=== PATIENT | male | born 1970 | race Hispanic/Latino ===

== ENCOUNTER → 2017-11-30 | Outpatient (CLI) | payer MEDICAID | END | disposition home or self-care (01) | LOC: RAH 13:18 | PROVIDERS: ATTEND Internal Medicine | DX: R59.0 Localized enlarged lymph nodes (principal) | CPT/HCPCS: 76536 ==

== ENCOUNTER → 2018-06-06 | Outpatient (CLI) | payer MEDICAID | END | disposition home or self-care (01) | LOC: OIH 10:09 | PROVIDERS: ATTEND Internal Medicine | DX: M13.812 Other specified arthritis, left shoulder (principal) | CPT/HCPCS: 73030 ==

== ENCOUNTER → 2019-12-04 | Outpatient (CLI) | payer MEDICAID | END | disposition home or self-care (01) | LOC: RAH 10:37 | PROVIDERS: ATTEND Internal Medicine | DX: E03.9 Hypothyroidism, unspecified (principal) ==

== ENCOUNTER → 2020-05-01 | Outpatient (CLI) | payer MEDICAID | END | disposition home or self-care (01) | LOC: RAH 10:40 | PROVIDERS: ATTEND Internal Medicine | DX: M47.27 Other spondylosis with radiculopathy, lumbosacral region (principal); M41.9 Scoliosis, unspecified | CPT/HCPCS: 72082; 72100 ==

== ENCOUNTER 2021-10-27 21:48 | Emergency (ER) | payer MEDICAID ==
[~2021-10-27] VITALS: Ht 175.3 cm; Wt 112.0 kg
[2021-10-27 23:40] LABS: APPEARANCE,URINE Clear (CLEAR); BILIRUBIN,URINE Negative (NEGATIVE); COLOR,URINE Dark Yellow (YELLOW); GLUCOSE, URINE (UA) Negative (NEGATIVE); KETONES,URINE 40 mg/dL (NEGATIVE); LEUKOCYTE ESTERASE ,URINE Moderate (NEGATIVE); NITRATE,URINE Negative (NEGATIVE); OCCULT BLOOD,URINE Negative (NEGATIVE); PROTEIN,URINE Trace mg/dL (NEGATIVE)
[2021-10-27] MEDS ORDERED: FAMOTIDINE 20MG VIAL IV ONE (23:41)
[2021-10-27] MEDS ORDERED: ONDANSETRON 4MG INJ ONE (23:41)
[2021-10-27 23:52] LABS: BACTERIA,URINE Few /HPF (None Seen); MUCUS,URINE Many LPF (None Seen); RBC,URINE None Seen /HPF (0-1); SQUAMOUS EPITHELIAL CELL,UR Few /HPF (0-2)
[2021-10-27 23:52] LABS: BASOPHILS % (AUTO) 0.1 % (0.0-5.0); EOSINOPHILS % (AUTO) 0.7 % (0.0-8.0); HEMATOCRIT 48.9 % (42-54); LYMPHOCYTES % (AUTO) 4.1 % (21.0-51.0); MEAN CORPUSCULAR HEMOGLOBIN 30.1 pg (27.0-33.0); MEAN CORPUSCULAR HGB CONC 32.7 g/dL (32.0-36.0); MEAN CORPUSCULAR VOLUME 92.1 fL (79-99); MONOCYTES % (AUTO) 5.4 % (3.0-13.0); NEUTROPHILS % (AUTO) 89.4 % (40.0-77.0); PLATELET COUNT (AUTO) 271 K/uL (130-400); RED BLOOD CELL COUNT(AUTO) 5.31 MIL/uL (4.50-6.20); RED CELL DISTRIBUTION WIDTH 12.7 % (11.0-15.5); WHITE BLOOD COUNT (AUTO) 15.2 K/uL (4.8-10.8)
[2021-10-28] MEDS ORDERED: CEFTRIAXONE 1G VIAL IVP ONE
[2021-10-28] MEDS ORDERED: FAMOTIDINE 20MG VIAL IV ONE
[2021-10-28] MEDS ORDERED: CEPH500B PO
[2021-10-28] MEDS ORDERED: ONDANSETRON 4MG INJ IVP ONE
[2021-10-28] MEDS ORDERED: 0.9%NACL 1000ML 1,000 ML IV ONE
[2021-10-28] MEDS ORDERED: ONDA4TAB10 PO
[2021-10-28] MEDS ORDERED: FAMO-136 PO
[2021-10-28 00:02] LABS: CREATININE 0.9 mg/dL (0.5-1.5)
[2021-10-28 00:07] LABS: ALBUMIN 4.6 g/dL (3.5-5.0); BILIRUBIN,TOTAL 0.9 mg/dL (0.2-1.0); TOTAL PROTEIN, SERUM 9.6 g/dL (6.0-8.3)
[2021-10-28 01:13] VITALS: BP 125/70
== END 2021-10-28 01:20 | disposition home or self-care (01) ==
LOC: EDH 21:48
DX: N39.0 Urinary tract infection, site not specified (principal); R11.2 Nausea with vomiting, unspecified; F20.9 Schizophrenia, unspecified; E03.9 Hypothyroidism, unspecified; Z79.899 Other long term (current) drug therapy
CPT/HCPCS: 36415; 80053; 81001; 83690; 84484; 85025; 87088; 93005; 96361; 96374; 96375 ×2; 99284; J0696; J2405; J7030; S0028; J3490

== ENCOUNTER 2025-03-03 11:14 | Emergency (ER) | payer MEDICAID ==
[~2025-03-03] VITALS: Ht 175.3 cm; Wt 103.4 kg
[~2025-03-03 11:14] MED LIST: CEPH500B PO; FAMO-136 PO; ONDA-243 PO
--- NOTE | 2025-03-03 11:21 | ERN ---
ED Note History of Present Illness Stated Complaint: BACK PAIN Chief Complaint: Back Pain or Injury Time Seen by MD: 11:16 Dictation: PATIENT IS A 54-YEAR-OLD MALE HERE WITH HIS WITH COMPLAINTS OF AN ACUTE ONSET OF LUMBOSACRAL PAIN TENDERNESS WITHOUT RADICULOPATHY OR SCIATICA ONSET YESTERDAY. SAID HE WOKE UP WITH THE PAIN THAT GOT PROGRESSIVELY WORSE. DENIES ANY CHANGE IN BOWEL OR BLADDER FUNCTION NO CHANGE IN URINATION NO FEVER NO CHILLS. DOES STATE HE HAS A HISTORY OF SCOLIOSIS. HE TOOK TYLENOL YESTERDAY FOR PAIN. 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 13 POINT REVIEW OF SYSTEMS ASSESSED AND ALL NEGATIVE EXCEPT FOR ABOVE. Initial Vital Sign VS Vital Signs Date Time Temp Pulse Resp B/P (MAP) Pulse Ox O2 Delivery O2 Flow Rate FiO2 03/03/25 11:15 98.1 76 16 118/69 97 Room Air 03/03/25 11:46 0 21 Physical Exam Dictation VITAL SIGNS REVIEWED GENERAL APPEARANCE: ALERT, ORIENTED X 3, MODERATE ACUTE DISTRESS, WELL DEVELOPED, NOURISHED. HEAD AND FACE: NON-TRAUMATIC. EYES: PERRL, PINK CONJUNCTIVAS, EYELID NO TRAUMA, ANTERIOR CHAMBER WITH ARCUS SENILIS. EARS: PINNAS INTACT AND NO SIGNS OF TRAUMA OR ERYTHEMA EAR CANALS CLEAR AND NO DISCHARGE TM NO ERYTHEMA NOSE: NO DISCHARGE, NO BLEEDING. OROPHARYNX: MOUTH NORMAL, TONGUE PINK, PHARYNX CLEAR,NO ERYTHEMA, TONSILS NO EXUDATES, NO ABSCESSES NOTED, MUCOUS MEMBRANE MOIST NECK: SUPPLE, NON-TENDER, NO THYROMEGALY, NO MASSES, NO JVD, NO BRUITS BREAST:DEFERRED CHEST:NO TENDERNESS, NO CREPITUS, NO PARADOXICAL MOVEMENT, NO RETRACTIONS LUNGS:CLEAR, WELL-VENTILATED, SYMMETRIC, NO RALES, NO WHEEZING, NO RHONCHI, NO STRIDOR, GOOD BREATH SOUNDS BILATERALLY HEART: REGULAR RATE, REGULAR RHYTHM, NO MURMUR, NO GALLOPS VASCULAR: NO PERIPHERAL EDEMA, ABDOMEN: SOFT, POSITIVE BOWEL SOUNDS, NONDISTENDED, NO GUARDING, NONTENDER, NO REBOUND, NO MASSES NO HEPATOMEGALY, NO SPLENOMEGALY, NO MOISE'S SIGN, NO HERNIAS. RECTAL: DEFERRED GENITAL: DEFERRED NEUROLOGICAL: NORMAL SPEECH, MOTOR FUNCTION INTACT, SENSORY FUNCTION INTACT MUSCULOSKELETAL: NECK NONTENDER, FULL RANGE OF MOTION, DIFFUSE LUMBOSACRAL TENDERNESS WITHOUT MIDLINE SPINE PAIN. NEGATIVE STRAIGHT LEG RAISE BILATERALLY 10. NO STEP-OFFS EXTREMITIES: NONTENDER, FULL RANGE OF MOTION SKIN: COLOR PINK, DRY, NO TURGOR, NO RASH, NO LACERATIONS, NO ABRASIONS, NO CONTUSIONS. LYMPHATIC: DEFERRED Results (Laboratory/Radiology) Laboratory/Radiology LUMBOSACRAL X-RAY DEMONSTRATES SCOLIOTIC LEAN WITH DEGENERATIVE JOINT DISEASE. Labs Reviewed?: Yes ED Course ED Course Orders Procedure Category Date Status Time Dexamethasone 4mg/Ml PHA 03/03/25 Complete 1ml Vial (Dexametha 11:30 Ibuprofen 800 Mg Tab PHA 03/03/25 Complete (Motrin) 11:30 Cyclobenzaprine Hcl PHA 03/03/25 Complete (Cyclobenzaprine Hcl 11:30 Lumbar Spine 2-3vws RAD 03/03/25 Taken 11:18 Current Medications Medications (Trade) Dose Ordered Sig/Saige Route PRN Reason Start Time Stop Time Status Last Admin Dose Admin Cyclobenzaprine HCl (Cyclobenzaprine HCl) 10 mg ONCE ONCE PO 03/03/25 11:30 03/03/25 11:31 DC 03/03/25 11:38 Dexamethasone Sodium Phosphate (dexaMETHasone 4MG/ML 1ML VIAL) 8 mg ONCE ONCE IM 03/03/25 11:30 03/03/25 11:31 DC 03/03/25 11:38 Ibuprofen (moTRIN) 800 mg ONCE ONCE PO 03/03/25 11:30 03/03/25 11:31 DC 03/03/25 11:39 Vital Signs Date Time Temp Pulse Resp B/P (MAP) Pulse Ox O2 Delivery O2 Flow Rate FiO2 03/03/25 11:46 98.2 98 16 120/70 98 Room Air* 0 21 03/03/25 11:15 98.1 76 16 118/69 97 Room Air 1220/PATIENT STATES PAIN IS IMPROVING AFTER TREATMENT. WE WILL DISCHARGED HOME WITH IBUPROFEN FLEXERIL TOLD TO SEE HIS PRIMARY CARE DOCTOR TUESDAY FOR FOLLOW UP AND MANAGEMENT. Medical Decision Making MDM MEDICAL DECISION-MAKING BASED ON EMPIRIC TREATMENT FOR ACUTE LUMBAR PAIN. X-RAY PERFORMED MEDICAL DECISION-MAKING BASED ON EMPIRIC TREATMENT FOR LUMBAR PAIN. LUMBAR X-RAY PERFORMED DISCHARGED HOME WITH IBUPROFEN AND FLEXERIL TOLD SEE HIS PRIMARY CARE DOCTOR . DX & DISP Disposition: Discharge Departure Impression: Primary Impression: Acute myofascial strain of lumbosacral region Additional Impression: Scoliosis Condition: Stable Scripts Ibuprofen (Ibuprofen 800 mg Tab) 800 Mg Tab 800 MG PO Q8H PRN for fever or pain, #30 TAB 0 Refills Prov: NISSA BANUELOS NP 03/03/25 Cyclobenzaprine HCl (Cyclobenzaprine HCl) 10 Mg Tablet 1 TAB PO TID for muscle spasms for 10 Days, #30 TAB 0 Refills Prov: NISSA BANUELOS NP 03/03/25 Additional Instructions: Follow-up with primary care provider in 1 to 2 days. Take medications as directed here in the emergency room. Okay to continue home medications unless otherwise discussed during your visit in the emergency room today. Return to your nearest emergency room if symptoms worsen or if there is no improvement. Call 911 if you need immediate assistance. Take Tylenol or Motrin [id number] as needed and if no contraindications are present. Increase oral hydration. A wound culture or urine culture was ordered here in the emergency room department please follow-up with primary care provider and advise them to get repeat ports from our facility. If you had any Wilder wrap/splints that were applied here, please do not remove them until you see your primary care or specialty. Take ibuprofen and Flexeril every 8 hours with food for the next two days. Warm compresses to pain three to 4 times a day. See your primary care doctor on Tuesday for follow up and management. Referrals: EKATERINA ABREU MD (PCP) Time of Disposition: 12:49 I have reviewed the case, and I agree with, Diagnosis and Plan NISSA BANUELOS NP Mar 03, 2025 11:21
[2025-03-03] MEDS: CYCLOBENZAPRINE HCL 10 MG TABLET PO ONE (11:38)
[2025-03-03] MEDS ORDERED: IBUP-2077 PO (12:50)
[2025-03-03] MEDS ORDERED: CYCL-309 PO (12:50)
[2025-03-03 13:05] VITALS: BP 120/70; PULSE 94; RESP 16; TEMP 98.3; O2SAT 98
--- NOTE | 2025-03-03 14:17 | HMCIMG ---
EXAM: CR Lumbar Spine, 3 view. CLINICAL HISTORY: ACUTE LUMBOSACRAL PAIN TENDERNESS NO RADICULOPATHY OR SCIATICA COMPARISON: None provided. FINDINGS: Lumbar alignment is within normal limits. Straightening of the lumbar spine may reflect paraspinal muscle spasm. Spondylosis evident by anterior osteophytes and syndesmophytes at multiple levels. Multilevel degenerative disc disease, more pronounced at L5-S1. Vertebral body heights are maintained. No displaced fracture. Facet joint osteoarthritis at L5-S1. No listhesis. IMPRESSION: 1. No acute osseous injury. 2. Multilevel lumbar spondylosis and degenerative disc disease, most pronounced at L5-S1. /Keymar
== END 2025-03-03 13:12 | disposition home or self-care (01) ==
LOC: EDH 11:14
DX: S39.012A Strain of muscle, fascia and tendon of lower back, initial encounter (principal); M41.9 Scoliosis, unspecified; E03.9 Hypothyroidism, unspecified; F20.9 Schizophrenia, unspecified; F31.9 Bipolar disorder, unspecified; Z79.899 Other long term (current) drug therapy; X58.XXXA Exposure to other specified factors, initial encounter; Y93.89 Activity, other specified; Y92.89 Other specified places as the place of occurrence of the external cause; Y99.8 Other external cause status
CPT/HCPCS: 99283; 72100; 96372; J1100